=== PATIENT | female | born 1965 | race Caucasian/White ===

== ENCOUNTER → 2017-07-30 14:58 | Outpatient (CLI) | payer OTHER, SELFPAY ==
--- NOTE | 2017-07-30 15:10 | XR_ITS ---
XR hand LT min 3V HISTORY: Pain following injury ITS.REASON: LEFT HAND INJURY ORDERING PHYSICIAN: Ama Fernandez PATIENT AGE: 52 years COMPARISON: None FINDINGS: No fracture or dislocation. No lytic or blastic change. There is normal mineralization.. The joint spaces are well-preserved. No significant degenerative/arthritic changes. No erosive changes evident.. IMPRESSION: Negative, no acute finding
== END ==
PROVIDERS: PCP Nurse Practitioner Family; Visit Provider Nurse Practitioner Family
DX: S69.92XA Unspecified injury of left wrist, hand and finger(s), initial encounter (principal)
CPT/HCPCS: 73130

== ENCOUNTER 2020-02-11 16:01 | Emergency (ER) | payer BC, SELFPAY ==
[2020-02-11 16:34] VITALS: BP 140/78; PULSE 64; RESP 20; TEMP 36.8; O2SAT 98; BMI 41.6
--- NOTE | 2020-02-11 16:59 | HMH.EDUTC ---
[facility] [place] Clinical Impression: Poison katerina Contact dermatitis Qualifiers: Contact dermatitis type: unspecified Contact dermatitis trigger: unspecified trigger Qualified Code(s): L25.9 - Unspecified contact dermatitis, unspecified cause Disposition: Home, Self-Care Condition on Discharge: Good Instructions: Poison Katerina, Poison [place], Poison [place], DI for Poison Katerina Allergy Additional Instructions: Avoid contact with the offending substance (poison katerina). Don't start the oral steroids until tomorrow. Don't put the topical steroids (triamcinolone) on your face or your groin. Follow up with your regular doctor. GO TO THE ER FOR ANY WORSENING SYMPTOMS OR CONCERNS Prescriptions: methylPREDNISolone [Medrol] 4 mg PO DIRECTED 6 Days #21 [email or web address] Transmission Status: Received by [id number] Triamcinolone Acetonide 1 applicatio TP TIDP PRN 7 Days #1 tube PRN Reason: Itching Transmission Status: Received by [id number] Referrals: Seferino Boykin [Primary Care Provider] - Time of Disposition: 17:16 Medical Decision Making - Medical Records Medical records reviewed: No: I reviewed the patient's medical records. - Jorge Luis Inquiry Pt receiving controlled substance: No Vital Signs: 02/11/20 16:34 02/11/20 17:17 Temperature 98.2 F 98.2 F Temperature Source Oral Pulse Rate 64 Pulse Rate [Right Brachial] 64 Respiratory Rate 20 20 Blood Pressure 140/78 Blood Pressure [Right Arm] 140/78 Blood Pressure Mean [Right Arm] 98 Blood Pressure Source [Right Arm] Automatic Cuff Blood Pressure Position [Right Arm] Sitting 02 Sat by Pulse Oximetry 98 Oxygen Delivery Method Room Air Orders (Tests/Meds): ED MEDICATIONS Discontinued Medications Generic Name Dose Route Start Last Admin Trade Name Freq PRN Reason Stop Dose Admin Methylprednisolone Sodium Succinate 125 mg 02/11/20 17:02 02/11/20 17:10 Solu-Medrol 125mg/2ml Vial IM 02/11/20 17:03 125 mg ONCE ONE Administration [facility] [place] H[place] - General Stated complaint: Rash Time Seen by Provider: 02/11/20 16:59 Mode of Arrival: Ambulatory Source of Information: Patient Limitations: No Limitations Description of Symptoms (Recalled from Triage Doc. by RN): PATIENT C/O RASH TO ANKEL X 1 WEEK HEENT Symptoms (Recalled from RN notes): No Resp Symptoms (Recalled from RN notes): No Skin Symptoms (Recalled from RN notes): Yes MS Symptoms (Recalled from RN notes): No Functional Status (Recalled from RN notes): WNL - History of Present Illness Provider Complaint: She c/o having a rash on her right lower leg and ankle for the past week. - Related Data Home Medications Medication Instructions Recorded Confirmed bisoproloL fumarate [Zebeta 5mg 5 mg PO DAILY 01/26/18 01/26/19 tablet] Colestipol HCl 1 gm PO BID 01/26/19 01/26/19 Glimepiride [Amaryl 2mg tablet] 2 mg PO DAILY 01/26/19 01/26/19 Previous Rx's Medication Instructions Recorded hydrocortisone 1 % topical cream 1 applic TOPICAL TID PRN 5 Days 02/11/19 #14.2 g Triamcinolone Acetonide 1 applicatio TP TIDP PRN 7 Days #1 02/11/20 tube methylPREDNISolone [Medrol] 4 mg PO DIRECTED 6 Days #21 02/11/20 tab.[email or web address] Allergies Allergy/AdvReac Type Severity Reaction Status Date / Time morphine Allergy Anaphylaxis Verified 02/11/19 17:47 - Worker's Comp Is this a Worker's Comp case?: No [facility] [place] History - Hepatitis A Screen Drug use history?: No High risk sexual behaviors?: No History of sexually transmitted infection?: No Currently employed?: No Childcare worker?: No Do you have indoor plumbing?: Yes Do you have electricity?: Yes Attestation statement:: This patient has been screened for Hepatitis A risk factors. I have reviewed the patient's past medical history: Yes Medical History: Reports:: Cancer, Diabetes Mellitus Type 2, Hypertension Denies:: Diabetes Mellitus Type 1, Internal Pacemaker, Lung Disease, Seizures Other Medic
[2020-02-11 17:17] VITALS: BP 140/78; PULSE 64; RESP 20; TEMP 36.8; O2SAT 98
== END 2020-02-11 17:20 | disposition home or self-care (01) ==
LOC: UTC 16:04
PROVIDERS: Emergency Provider Nurse Practitioner Family; PCP Internal Medicine
DX: L23.7 Allergic contact dermatitis due to plants, except food (principal); I10 Essential (primary) hypertension; E11.9 Type 2 diabetes mellitus without complications; Z90.49 Acquired absence of other specified parts of digestive tract; Z79.899 Other long term (current) drug therapy
CPT/HCPCS: 96372; 99201

== ENCOUNTER → 2020-03-02 08:12 | Outpatient (CLI) | payer BC, SELFPAY ==
[2020-03-02 09:56] LABS: Coronavirus 19 IgG Antibody Negative (Negative); Coronavirus 19 IgM Antibody Negative (Negative)
== END ==
PROVIDERS: Visit Provider Internal Medicine Gastroenterology
DX: Z01.818 Encounter for other preprocedural examination (principal); Z12.11 Encounter for screening for malignant neoplasm of colon; Z85.038 Personal history of other malignant neoplasm of large intestine
CPT/HCPCS: 36415; 86328

== ENCOUNTER 2020-03-05 11:28 | Day surgery (SDC) | payer BC, SELFPAY ==
[2020-03-01 13:05] VITALS: BMI 41.6
[2020-03-05] VITALS (7 sets, daily range): BP systolic 93–141; BP diastolic 61–99; PULSE 54–64; RESP 16–18; TEMP 36.6–37.1; O2SAT 92–97
[2020-03-05 12:45] LABS: POC Glucose,Bedside 89 (70-110)
--- NOTE | 2020-03-05 13:40 | P.PN_ITS ---
[facility] Anesthesia Checklist - Patient Identification Patient Identification: Arm Band - Structural Data Admitted From: Home Planned Operative Procedure/s: colonoscopy Consent for Planned Operative Procedure(s) Verified: Yes Verified Documents: Surgical Consent, History and Physical - NPO Status Verified Time NPO: 00:00 - Additional verifications Anesthesia Reactions: No Hx Blood Transfusions: No Blood Transfusion Reaction: No - Airway Assessment C-Spine Mobility Assessed: Yes (mp3) TMJ Mobility Assessed: Yes Dentition: Good Dentition - Neurological Assessment Level of Consciousness: Awake, Alert - Anesthesia Plan Anesthesia Risk discussed: Yes Anesthesia Plan: Verified ASA Class: III Anesthesia Type: MAC [facility] History I have reviewed the patient's past medical history: Yes Medical History: Reports:: Cancer (colon), Diabetes Mellitus Type 2, Hypertension, Valvular Heart Disease Denies:: Diabetes Mellitus Type 1, Internal Pacemaker, Lung Disease, MRSA, Seizures *Have you ever received a pneumonia vaccine?: No *Have you received a flu vaccine this season?: No Other Medical History: Reports: Other. Denies: Blood Transfusion Reaction Anesthesia experience/problems:: nac Other Surgeries: Yes: Cholecystectomy, Colonoscopy. No: Pacemaker Amputation: No Fractures: No - *Social History Last grade of school completed: High school graduate Smoking Status: Never smoker Alcohol Intake: never Alcohol Intake Frequency:: other Substance Use Type: denies use *Occupational Status:: employed Housing: house Household Members: family *Travel in the last 8 weeks: None Family Hx:: Cancer, Coronary Artery Disease, Diabetes
--- NOTE | 2020-03-05 13:47 | HMH.PROC ---
[facility] Procedure Note Procedure Note:: Colonoscopy Procedure Report: Colonoscopy with cold snare polypectomy Endoscopist: Lalo Rothman II, MD Referring physician: Juan M Boykin MD Date of Procedure: March 05, 2020 Equipment: Olympus 180 variable stiffness pediatric colonoscope Sedation: MAC sedation Indication: Mrs. Gallegos is a 55-year-old female who is here for follow-up screening/surveillance colonoscopy. The patient did have a colonoscopy with ak on February 01, 2018 and had 7 colon polyps removed with the largest polyp in the sigmoid colon showing moderately differentiated adenocarcinoma arising within a tubular adenoma with extensive high-grade dysplasia. There was focal angiolymphatic invasion and the patient did undergo low anterior resection and has done well. She does state that her paternal grandfather had colon cancer in his 60s or 70s. Her maternal great-grandmother had colon cancer. 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 Her genetic testing for Ulrich syndrome was negative. The patient did have a colonoscopy for surveillance again on January 31, 2019. At that time she had 2 diminutive polyps (small tubular adenomas x2) removed. The patient reports no significant abdominal pain, weight loss, change in her bowel habits or rectal bleeding. She does get some occasional lower abdominal discomfort on the left. Procedure: Prior to the procedure, a history and physical exam was performed, and patient's medications and allergies were reviewed. The risks, benefits and alternatives of the sedation and procedure were discussed with the patient. All questions were answered and informed consent was obtained. The patient was brought to the procedure room. Patient identification and proposed procedure were verified by the physician and the nurse. The patient was placed in a left lateral decubitus position and the scope was passed under direct vision. Throughout the procedure, the patient's blood pressure, pulse, and oxygen saturations were monitored continuously. The colonoscopy was accomplished without difficulty. The patient tolerated the procedure well. Findings: On digital rectal examination there was normal rectal tone. There were no external hemorrhoids. The colonoscope was introduced through the anal canal to the rectum and advanced to the cecum. The ileocecal valve and appendiceal orifice were identified. The scope was advanced a short distance into the ileum which appeared grossly normal. The scope was then withdrawn into the colon. The cecum, ascending colon were normal. There was a diminutive 3 mm polyp in the transverse colon removed via cold snare polypectomy. The remaining descending colon was normal. There was a normal-appearing anastomosis. The remainder of the rectum was normal. Upon retroflexion within the rectum there were grade 1 internal hemorrhoids.The preparation was excellent throughout with [place] Preparation Score of 9. The cecal time was 12 minutes. Impression: 1. Diminutive transverse colon polyp 2. Normal anastomosis (prior LAR/sigmoid resection). Plan: I will follow-up the polyp histology and I will discuss the findings with the patient and family. I would increase surveillance interval to 3 years.
== END 2020-03-05 14:32 | disposition home or self-care (01) ==
LOC: OUTP 11:29
PROVIDERS: PCP Internal Medicine; Visit Provider Internal Medicine Gastroenterology
PROC: 0DJD8ZZ Inspection of Lower Intestinal Tract, Via Natural or Artificial Opening Endoscopic (ICD-10-PCS; CPT 45378; principal; 2020-03-05 13:30)
DX: Z12.11 Encounter for screening for malignant neoplasm of colon (principal); Z86.010 Personal history of colon polyps; K63.5 Polyp of colon; Z85.038 Personal history of other malignant neoplasm of large intestine; Z80.9 Family history of malignant neoplasm, unspecified; E11.9 Type 2 diabetes mellitus without complications; I10 Essential (primary) hypertension; I38 Endocarditis, valve unspecified; Z90.49 Acquired absence of other specified parts of digestive tract; Z83.3 Family history of diabetes mellitus; Z82.49 Family history of ischemic heart disease and other diseases of the circulatory system; Z79.899 Other long term (current) drug therapy
CPT/HCPCS: 45385; 82962